=== PATIENT | female | born 2005 | race Hispanic/Latino ===

== ENCOUNTER 2023-10-10 17:48 | Inpatient (IN) | payer OTHER ==
[2023-10-10] MEDS ORDERED: Lorazepam 2 MG/ML VIAL SLOW IVP PRN (18:24)
[2023-10-10] MEDS ORDERED: Calcium Gluc 4.6 MEQ/10 ML (100 MG/ML) SLOW IVP PRN (18:24)
[2023-10-10 18:33] VITALS: BMI 31.1
[2023-10-10] MEDS ORDERED: hydrALAZINE 20 MG/ML VIAL SLOW IVP PRN (18:35)
[2023-10-10 19:33] LABS: #Eosinphils 0.1 10x3/uL (0.0-0.5); #Monocytes 0.5 10x3/uL (0.0-1.1); %Basophils 0.4 % (0.0-2.0); %Eosinophils 0.8 % (0.0-6.0); %Monocytes 5.2 % (0.0-10.0); %Neutrophils 68.1 % (40.0-75.0); Hematocrit 37.7 % (34.9-44.5); Hemoglobin 13.6 g/dL (12.0-15.5); Mean Corpuscular HGB CONC 36.1 g/dL (32.0-36.0); Mean Corpuscular Hemoglobin 31.8 pg (27.0-33.0); Mean Corpuscular Volume 88.1 fl (81.6-98.3); Mean Platelet Volume 12.4 fl (7.4-10.4); Platelet Count 283 10x3/uL (150-450); RBC Distribution Width 11.9 % (11.5-14.5); Red Blood Cell (RBC) Count 4.28 10x6/uL (3.90-5.03); White Blood Cell (WBC) Count 10.3 10x3/uL (3.5-10.5)
[2023-10-10 19:42] LABS: Creatinine, Urine 182.22 mg/dL (47-110)
[2023-10-10 19:42] LABS: ALT (SGPT) 22 U/L (8-55); AST (SGOT) 24 U/L (5-34); Albumin 3.5 g/dL (3.5-5.0); Alkaline Phosphatase 345 U/L (40-100); Anion Gap 16 mmol/L (10-20); BUN (Urea Nitrogen) 10 mg/dL (7.0-18.7); Bilirubin, Total 0.4 mg/dL (0.2-1.2); Calc. Creatinine Clearance 185 mL/min (70-130); Carbon Dioxide 18 mmol/L (22-29); Chloride 108 mmol/L (98-107); Estimated GFR 129; Globulin 3.4 g/dL (2.4-3.5); Glucose 93 mg/dL (70-105); Potassium 4.6 mmol/L (3.5-5.1); Protein, Total 6.9 g/dL (6.0-8.3); Sodium 137 mmol/L (136-145)
[2023-10-10] MEDS ORDERED: Lactated Ringer's 1,000 ML IV SCH (19:45)
[2023-10-10] MEDS ORDERED: Lidocaine 1% (PF) 30 ML VIAL SC PRN (19:50)
[2023-10-10] MEDS ORDERED: Ibuprofen 800 MG TAB PO PRN (19:50)
[2023-10-10] MEDS ORDERED: fentaNYL 50 mcg/mL 1 mL Vial SLOW IVP PRN (19:50)
[2023-10-10] MEDS ORDERED: Promethazine HCl 25 MG/ML VIAL IM PRN (19:50)
[2023-10-10] MEDS ORDERED: Butorphanol Tartrate 1 MG/ML VIAL SLOW IVP PRN (19:50)
[2023-10-10] MEDS ORDERED: Acetaminophen 500 MG TAB PO PRN (19:50)
[2023-10-10] MEDS ORDERED: Diphenoxylate HCl/Atropine Tablet PO PRN (19:50)
[2023-10-10] MEDS ORDERED: Ondansetron PF 4 MG/2 ML Vial IVP PRN (19:50)
[2023-10-10] MEDS ORDERED: Misoprostol 200 MCG TAB PR PRN (19:50)
[2023-10-10] MEDS ORDERED: Docusate 100 MG CAP PO PRN (19:50)
[2023-10-10] MEDS ORDERED: Tranexamic Acid 1,000 MG/10 ML VIAL IVP PRN (19:50)
[2023-10-10] MEDS ORDERED: Carboprost 250 MCG/ML AMP IM PRN (19:50)
[2023-10-10] MEDS ORDERED: Oxytocin 30 units/NS 500 ML 500 ML IV SCH ×3 (20:00)
[2023-10-10] MEDS ORDERED: Misoprostol 100 MCG TAB VAG SCH (20:00)
[2023-10-10] MEDS: Misoprostol 100 MCG TAB VAG SCH (21:06)
[2023-10-10 21:19] LABS: Syphilis Antibody Nonreactive (Nonreactive); Syphilis Antibody Index 0.03 S/CO (<1.00 Non-Reactive)
[2023-10-10 21:21] LABS: HBSAg Index 0.17 S/CO (0-0.99); Hep B Surf Ag - L&D Non-Reactive S/CO (NonReactive)
[2023-10-11] MEDS ORDERED: Terbutaline Sulfate 1 MG/ML VIAL ONE (04:14)
[2023-10-11] MEDS ORDERED: Terbutaline Sulfate 1 MG/ML VIAL SC SCH (04:45)
[2023-10-11] MEDS ORDERED: fentaNYL/Ropivacaine Epidural 100 ML ONE (13:50)
[2023-10-11] MEDS ORDERED: Lactated Ringer's 500 ML IV PRN (14:53)
[2023-10-11] MEDS ORDERED: ePHEDrine Sulfate 50 MG/10 ML VIAL SLOW IVP PRN (14:53)
[2023-10-11] MEDS ORDERED: Naloxone HCl 0.4 mg/ml Vial IVP PRN ×2 (14:53)
[2023-10-11] MEDS ORDERED: Moisturizing Cream (Eucerin) 113 GM JAR TOP PRN (14:53)
[2023-10-11] MEDS ORDERED: diphenhydrAMINE 50 MG/ML VIAL IVP PRN (14:53)
[2023-10-11] MEDS ORDERED: Promethazine HCl 25 MG/ML VIAL IM PRN (14:53)
[2023-10-11] MEDS ORDERED: Ondansetron PF 4 MG/2 ML Vial IVP PRN (14:53)
[2023-10-11] MEDS ORDERED: Communication Order-Pharmacy FS SCH (15:00)
[2023-10-11] MEDS ORDERED: fentaNYL 2 mcg/Ropivacaine 0.2% Epidural 100 ML CADD EPIDURAL SCH (15:00)
[2023-10-11] MEDS ORDERED: Preparation H Ointment 28 GM TUBE PR PRN (18:44)
[2023-10-11] MEDS ORDERED: Bisacodyl 10 MG SUPP PR PRN (18:44)
[2023-10-11] MEDS ORDERED: Milk Of Magnesia 30 ML UDCUP PO PRN (18:44)
[2023-10-11] MEDS ORDERED: Benzocaine-Menthol 82.5 ML CAN TOP PRN (18:44)
[2023-10-11] MEDS ORDERED: hydrALAZINE 20 MG/ML VIAL SLOW IVP PRN (18:44)
[2023-10-11] MEDS ORDERED: Lanolin Ointment 7 GM TUBE TOP PRN (18:44)
[2023-10-11] MEDS ORDERED: Boostrix 0.5 ML (Tdap) VIAL (>/=7 yrs of age) IM ONE (18:44)
[2023-10-11] MEDS ORDERED: diphenhydrAMINE 25 MG CAP PO PRN (18:44)
[2023-10-11] MEDS: Acetaminophen 325 MG TAB PO PRN (19:31)
[2023-10-11] MEDS: Docusate 100 MG CAP PO SCH (21:00)
[2023-10-11] MEDS ORDERED: Ibuprofen 800 MG TAB PO SCH (22:00)
[2023-10-12] MEDS: Ibuprofen 800 MG TAB PO SCH ×3 (05:00→20:00)
[2023-10-12] MEDS: Prenatal Vitamin 1 TAB PO SCH (07:39)
[2023-10-12] MEDS: Docusate 100 MG CAP PO SCH ×2 (07:39→20:00)
[2023-10-12] MEDS: Ferrous Sulfate 325 MG TAB PO SCH ×2 (09:00→19:14)
[2023-10-12] MEDS: Lactated Ringer's 1,000 ML IV SCH ×2 (11:35→11:48)
[2023-10-12] MEDS: Misoprostol 100 MCG TAB VAG SCH ×2 (11:36→11:47)
[2023-10-12] MEDS: Acetaminophen 325 MG TAB PO PRN (13:11)
[2023-10-12] MEDS ORDERED: Loratadine 10 MG TAB PO PRN (14:08)
[2023-10-12] MEDS: guaiFENesin ER 600 MG TAB PO PRN (14:59)
[2023-10-12] MEDS ORDERED: Lactated Ringer's 500 ML IV SCH (17:15)
[2023-10-12 17:39] LABS: Hematocrit 22.9 % (34.9-44.5); Hemoglobin 8.2 g/dL (12.0-15.5); Mean Corpuscular HGB CONC 35.8 g/dL (32.0-36.0); Mean Corpuscular Hemoglobin 32.9 pg (27.0-33.0); Mean Platelet Volume 11.6 fl (7.4-10.4); Platelet Count 192 10x3/uL (150-450); RBC Distribution Width 12.4 % (11.5-14.5); Red Blood Cell (RBC) Count 2.49 10x6/uL (3.90-5.03); White Blood Cell (WBC) Count 12.5 10x3/uL (3.5-10.5)
[2023-10-12 17:50] LABS: INR-International Normal Ratio 0.9; PTT 30.1 sec (22.0-33.0); Prothrombin Time 9.3 sec (9.5-12.1)
[2023-10-13] MEDS: guaiFENesin ER 600 MG TAB PO PRN (03:47)
[2023-10-13] MEDS: Ibuprofen 800 MG TAB PO SCH ×3 (03:47→18:23)
[2023-10-13] MEDS: Lactated Ringer's 1,000 ML IV SCH ×2 (07:21→07:23)
[2023-10-13] MEDS: Misoprostol 100 MCG TAB VAG SCH ×3 (07:22→07:24)
[2023-10-13] MEDS: Ferrous Sulfate 325 MG TAB PO SCH ×2 (07:46→16:37)
[2023-10-13] MEDS: Prenatal Vitamin 1 TAB PO SCH (07:46)
[2023-10-13] MEDS: Acetaminophen 325 MG TAB PO PRN (07:47)
[2023-10-13] MEDS: Docusate 100 MG CAP PO SCH (09:05)
[2023-10-13] MEDS ORDERED: Calcium Carbonate 500 MG ChewTAB PO PRN (10:16)
[2023-10-13] MEDS ORDERED: Simethicone Chewable 80 MG TAB PO PRN (10:16)
[2023-10-13] MEDS ORDERED: Fioricet 325/50/40 mg Tablet PO PRN (12:16)
[2023-10-13 15:57] VITALS: BP 135/92; TEMP 98.1
[2023-10-13 16:43] LABS: Hematocrit 23.2 % (34.9-44.5); Hemoglobin 8.3 g/dL (12.0-15.5)
== END 2023-10-13 19:15 | disposition home or self-care (01) | DRG 806 ==
LOC: CSHLD/OP 17:48 → CSHLD 20:02 → CSHPP 10-11 21:34
PROVIDERS: ADMIT Family Medicine; ATTEND Family Medicine
PROC: 10E0XZZ Delivery of Products of Conception, External Approach (ICD-10-PCS; principal; 2023-10-11)
PROC: 3E033VJ Introduction of Other Hormone into Peripheral Vein, Percutaneous Approach (ICD-10-PCS; 2023-10-11)
PROC: 10907ZC Drainage of Amniotic Fluid, Therapeutic from Products of Conception, Via Natural or Artificial Opening (ICD-10-PCS; 2023-10-11)
PROC: 10H07YZ Insertion of Other Device into Products of Conception, Via Natural or Artificial Opening (ICD-10-PCS; 2023-10-11)
DX: O14.94 Unspecified pre-eclampsia, complicating childbirth (principal); O99.354 Diseases of the nervous system complicating childbirth; Z37.0 Single live birth; O69.81X0 Labor and delivery complicated by cord around neck, without compression, not applicable or unspecified; J45.909 Unspecified asthma, uncomplicated; G43.909 Migraine, unspecified, not intractable, without status migrainosus; O99.52 Diseases of the respiratory system complicating childbirth; D50.9 Iron deficiency anemia, unspecified; F41.9 Anxiety disorder, unspecified; O99.344 Other mental disorders complicating childbirth; O13.4 Gestational [pregnancy-induced] hypertension without significant proteinuria, complicating childbirth; Z3A.37 37 weeks gestation of pregnancy; Z79.899 Other long term (current) drug therapy; Z91.012 Allergy to eggs
CPT/HCPCS: 36415; 51702; 80053; 82570; 84156; 85014; 85018; 85025; 85027; 85384; 85610; 85730; 86780; 86850; 86870; 86900; 86901; 86922; 87340; 99285; J2405; J2590; J3010; J7120